=== PATIENT | male | born 1985 | race African-American/Black ===

== ENCOUNTER 2016-10-19 12:28 | Emergency (ER) | payer SELFPAY ==
[~2016-10-19] VITALS: Ht 195.6 cm; Wt 120.2 kg
[2016-10-19 13:00] VITALS: BP 129/81
--- NOTE | 2016-10-19 14:26 | RAD ---
Indication cough. PA and lateral views of the chest were obtained and are compared to a single view examination 09/04/2005. The heart and pulmonary vessels appear normal. There is a minimal patchy infiltrate in the left lower lobe most apparent on the PA view. The right lung appears clear. There is no pleural fluid or pneumothorax. IMPRESSION: Minimal patchy infiltrate, compatible with pneumonia, in the left lower lobe
--- NOTE | 2016-10-19 14:26 | PHYS DOC ---
Past Medical History Past Medical History: No Pertinent History Past Surgical History: Other Additional Past Surgical Histo: pin placed in left hip Alcohol Use: Occasionally Drug Use: None Adult General Chief Complaint Chief Complaint: SHORTNESS OF BREATH HPI HPI Patient is a 31 year old male who presents emergency room with a complaint of a progressive cough and left anterior chest wall pain that began approximately one week ago. Patient denies history of cardiopulmonary disease. Patient does smoke. He denies foreign travel, hospitalization or antibiotic use within the past 90 days. Patient reports left anterior chest wall pain that worsens with deep breath and cough. He denies palpitations, exertional dyspnea, orthopnea or PND. Review of Systems Review of Systems Constitutional: Denies fever or chills [] Eyes: Denies change in visual acuity, redness, or eye pain [] HENT: Denies nasal congestion or sore throat [] Respiratory: Denies cough or shortness of breath [] Cardiovascular: No additional information not addressed in HPI [] GI: Denies abdominal pain, nausea, vomiting, bloody stools or diarrhea [] : Denies dysuria or hematuria [] Musculoskeletal: Denies back pain or joint pain [] Integument: Denies rash or skin lesions [] Neurologic: Denies headache, focal weakness or sensory changes [] Endocrine: Denies polyuria or polydipsia [] Allergies Allergies Allergies Coded Allergies Type Severity Reaction Last Updated Verified No Known Drug Allergies 01/30/15 No Physical Exam Physical Exam Constitutional: Well developed, well nourished, no acute distress, non-toxic appearance. [] HENT: Normocephalic, atraumatic, bilateral external ears normal, oropharynx moist, no oral exudates, nose normal. Eyes: PERRLA, EOMI, conjunctiva normal, no discharge. [] Neck: Normal range of motion, no tenderness, supple, no stridor. [] Cardiovascular:Heart rate regular rhythm, no murmur [] Lungs & Thorax: There is no respiratory distress or respiratory fatigue. Patient does cough quite often with a staccato cough that is nonproductive. He has a scant amount of rales in the left lower lung base. Abdomen: Bowel sounds normal, soft, no tenderness, no masses, no pulsatile masses. [] Skin: Warm, dry, no erythema, no rash. [] Back: No tenderness, no CVA tenderness. [] Extremities: No tenderness, no cyanosis, no clubbing, ROM intact, no edema. [] Neurologic: Alert and oriented X 3, normal motor function, normal sensory function, no focal deficits noted. [] Psychologic: Affect normal, judgement normal, mood normal. [] Current Patient Data Vital Signs Vital Signs Date Time Temp Pulse Resp B/P Pulse Ox O2 Delivery O2 Flow Rate FiO2 10/19/16 13:00 97.9 109 17 98 Room Air 97.9 EKG EKG [] Radiology/Procedures Radiology/Procedures PA and lateral chest x-ray was performed with adequate technique and reviewed by Dr. Jessica and myself. There is a small streaky and treat in the left lower lobe. Course & Med Decision Making Course & Med Decision Making Pertinent Labs and Imaging studies reviewed. (See chart for details) [] Dragon Disclaimer Dragon Disclaimer This electronic medical record was generated, in whole or in part, using a voice recognition dictation system. Departure Departure Impression: Primary Impression: Pneumonia Disposition: HOME, SELF-CARE Condition: GOOD Referrals: NO PCP (PCP) Patient Instructions: Pneumonia, Adult, [id number] Additional Instructions: 1. Take the medication as prescribed. 2. Review the discharge instructions for reasons to return the emergency room. 3. Use the pamphlet provided for assistance in finding a primary care doctor to address your medical concerns. Please call Saturday to make that happen. Scripts Hydrocodone/Chlorphen Polis (Tussionex Pennkinetic Susp)480 Ml Darcie.[id number] Ml PO BID COUGH #100 ML Prov:BRISEIDA TOM 10/19/16 Albuterol Sulfate (Proair Hfa Inhaler)8.5 Gm Hfa.aer.ad2 Puff INH PRN Q6HRS PRN SHORTNESS OF BREATH #1 INHALER Ref 0 Prov:BRISEIDA TOM 10/19/16 Azithromycin (Azithromycin Tablet)250 Mg Tablet1 Pkg PO UD #6 TAB Prov:BRISEIDA TOM 10/19/16 Prednisone 50 Mg Iabikx18 Mg PO DAILY 5 Days Prov:BRISEIDA TOM 10/19/16 BRISEIDA TOM Oct 19, 2016 14:26
[2016-10-19] MEDS ORDERED: PRED50TA PO (14:34)
[2016-10-19] MEDS ORDERED: AZIT250T6 PO (14:34)
[2016-10-19] MEDS ORDERED: PROAIR HFA8.5 GM INH (14:34)
[2016-10-19] MEDS ORDERED: HYDR115S2 PO (14:34)
== END 2016-10-19 14:38 | disposition home or self-care (01) ==
LOC: ER 12:28
DX: J18.9 Pneumonia, unspecified organism (principal); F17.200 Nicotine dependence, unspecified, uncomplicated
CPT/HCPCS: 71020; 99284

== ENCOUNTER 2019-01-08 20:17 | Emergency (ER) | payer SELFPAY ==
[~2019-01-08] VITALS: Ht 195.6 cm; Wt 120.2 kg
[~2019-01-08 20:17] MED LIST: ALBU2.5V8 INH; AZIT250T6 PO; HYDR115S2 PO; PRED50TA PO
[2019-01-08 20:20] VITALS: BP 127/92
[2019-01-08] MEDS ORDERED: AMOXICILLIN/K CLAV 875/125MG TABLET. PO ONE (20:45)
[2019-01-08] MEDS ORDERED: NEOMY/BACITR/POLYMYXIN OINT PACKET. TP ONE (20:45)
[2019-01-08] MEDS ORDERED: LIDOCAINE 2%/EPI 1:100,000 20 ML VIAL. IJ ONE (20:45)
[2019-01-08] MEDS ORDERED: HYDROcodone/APAP 5/325MG 1 TAB TABLET PO ONE (22:15)
--- NOTE | 2019-01-08 22:39 | PHYS DOC ---
Past Medical History Past Medical History: No Pertinent History Past Surgical History: Other Additional Past Surgical Histo: pin placed in left hip Alcohol Use: Occasionally Drug Use: Marijuana Adult General Chief Complaint Chief Complaint: ANIMAL BITE HPI HPI 33-year-old male presents with report of laceration to left elbow after being attacked by a "black dog". Patient reports he thinks it looked like a [place]. Patient reports he and his friends were outside and heard a dog barking. Reports they began to run and dog ended up chasing him. Patient does report he fell at one point. Patient is unsure if the dog bit him or if he cut his arm on something else. Patient reports last tetanus less than 5 years ago. Review of Systems Review of Systems Constitutional: Denies fever or chills Eyes: Denies redness or eye pain HENT: Denies nasal congestion or sore throat Respiratory: Denies cough or shortness of breath Cardiovascular: Denies chest pain or palpitations GI: Denies abdominal pain, nausea, or vomiting : Denies dysuria or hematuria Musculoskeletal: Denies back pain or joint pain Integument: Reports abrasion to left shoulder, laceration to left elbow, abrasion to left ear Neurologic: Denies headache, focal weakness or sensory changes Complete systems were reviewed and found to be within normal limits, except as documented in this note. Current Medications Current Medications Current Medications Medications (Trade) Dose Ordered Sig/Stephani Start Time Stop Time Status Last Admin Dose Admin Acetaminophen/ Hydrocodone Bitart (Lortab 5/325) 1 tab 1X ONCE 01/08/19 22:15 01/08/19 22:16 DC 01/08/19 22:00 1 TAB Amoxicillin/ Clavulanate Potassium (Augmentin 875/ 125mg) 1 tab 1X ONCE 01/08/19 20:45 01/08/19 20:46 DC 01/08/19 20:57 1 TAB Lidocaine/ Epinephrine (LIDOCAINE 2%-EPI 1:100,000 multi-dose) 20 ml 1X ONCE 01/08/19 20:45 01/08/19 20:46 DC 01/08/19 20:57 20 ML Neomycin/ Polymyxin/ Bacitracin (Triple Antibiotic Ointment) 1 pkt 1X ONCE 01/08/19 20:45 01/08/19 20:46 DC 01/08/19 20:57 1 PKT Allergies Allergies Allergies Coded Allergies Type Severity Reaction Last Updated Verified No Known Drug Allergies 01/30/15 No Physical Exam Physical Exam Constitutional: Well developed, well nourished, anxious, non-toxic appearance HENT: Normocephalic, atraumatic, oropharynx moist Eyes: Conjunctiva normal, no discharge Neck: Normal range of motion, no tenderness, supple Cardiovascular: Heart rate normal, regular rhythm Lungs & Thorax: Bilateral breath sounds clear to auscultation, no wheezing Abdomen: Soft, no tenderness Skin: Warm, dry, no erythema, 2 linear lacerations to left elbow (7cm and 2cm), bleeding controlled; abrasion noted to left shoulder, small abrasion 0.5cm to left ear Extremities: No tenderness, ROM intact, no edema Neurologic: Alert and oriented X 3, normal motor function, normal sensory function, no focal deficits noted Psychologic: Affect anxious, judgement normal Current Patient Data Vital Signs EKG EKG [] Radiology/Procedures Radiology/Procedures PROCEDURE: ELBOW LEFT 3V EXAM: 3 views left elbow DATE: 01/08/2019 8:50 PM INDICATION: LACERATION, EVALUATE FOR FOREIGN BODY. COMPARISON: No Prior FINDINGS/ IMPRESSION: 1. No evidence of acute fracture or dislocation. 2. Soft tissue swelling and irregularity at the dorsal aspect of the right elbow. Given this overlies the triceps attachment, associated triceps injury is not excluded. Small focus of intra-articular gas is suspected at the radiocapitellar joint. 3. Small linear radiopaque density is seen at the lateral aspect of the lateral epicondyle, possibly retained foreign body, overlying structure or subtle calcification, seen only on the AP view. Electronically signed by: Nishant Hillman MD (01/09/2019 12:28 AM) [facility] Course & Med Decision Making Course & Med Decision Making Patient presents with history of present illness and physical exam consistent for.laceration to left elbow. Unclear if patient was actually bit by a dog or sustained laceration from something else. Empiric antibiotics initiated. Limb neurovascularly intact and with full range of motion. X-rays obtained without acute fracture. A small foreign body possibly noted. Lacerations copiously irrigated and wound explored without findings consistent for retained foreign body. Lacerations repaired with sutures. Dressing applied with triple antibiotic ointment. Patient stable for discharge with outpatient follow-up with PCP. Discussed findings and plan with patient, who acknowledges understanding and agreement. Dragon Disclaimer Dragon Disclaimer This electronic medical record was generated, in whole or in part, using a voice recognition dictation system. Laceration/Wound Repair Laceration/Wound Repair #1: Wound Location: upper extremity (left elbow) Wound's Depth, Shape: linear Wound Length (cm): 7 Wound Explored: no foreign body removed Irrigated w/ Saline (ccs): 200 Betadine Prep?: No Anesthesia: Lidocaine w/ Epi (2%) Volume Anesthetic (ccs): 6 Wound Debrided: minimal Wound Repaired With: sutures Suture Size/Type: 3:0, nylon Number of Sutures: 10 Layer Closure?: Yes Sterile Dressing Applied?: Yes Laceration/Wound Repair #2: Wound Location: upper extremity (left elbow) Wound's Depth, Shape: linear Wound Length (cm): 2 Wound Explored: no foreign body removed Irrigated w/ Saline (ccs): 200 Anesthesia: Lidocaine w/ Epi (2%) Volume Anesthetic (ccs): 2 Wound Debrided: minimal Wound Repaired With: sutures Suture Size/Type: 3:0, nylon Number of Sutures: 2 Sterile Dressing Applied?: Yes Progress Verbal consent obtained. Time out performed. Hand hygiene utilized. Wound cleaned with ChloraPrep. Anesthesia obtained via a 25-gauge hypodermic needle with total of (8) mL's of lidocaine 2% with epinephrine. Copious irrigation performed. Wound well approximated with (3-0 nylon x 10 to larger wound and 3-0 nylon x 2 to smaller wound). Patient tolerated procedure well and without difficulty. Empiric antibiotic ointment applied prior to sterile dressing. Departure Departure Impression: Primary Impression: Dog bite Additional Impression: Laceration Disposition: 01 HOME, SELF-CARE Condition: STABLE Referrals: NO PCP (PCP) Patient Instructions: Animal Bite, [id number], Laceration Care, Adult, [id number] Additional Instructions: Do not soak your wound. You may shower. Clean wound daily with soap and water. Change dressing 2 times daily. Use over the counter antibiotic ointment with each dressing change. Sutures need to be removed in 7-10 days. Present to your family doctor or local urgent care for removal. You may also present to the ED but it will be an additional visit/charge. After suture removal you may use Vitamin E ointment to soften the wound and prevent scarring. Use [id number] Tylenol or ibuprofen for pain or discomfort. Scripts Amoxicillin/Potassium Clav (AUGMENTIN 875-125 TABLET) 1 Each Tablet 1 TAB PO BID, #14 TAB Prov: HARRY KERN DO 01/08/19 Problem Qualifiers Primary Impression: Dog bite Encounter type: initial encounter Qualified Codes: W54.0XXA - Bitten by dog, initial encounter HARRY KERN DO Jan 08, 2019 22:39
[2019-01-08] MEDS ORDERED: AMOX1TAB61 PO (22:48)
--- NOTE | 2019-01-09 00:31 | RAD ---
EXAM: 3 views left elbow DATE: 01/08/2019 8:50 PM INDICATION: LACERATION, EVALUATE FOR FOREIGN BODY. COMPARISON: No Prior FINDINGS/ IMPRESSION: 1. No evidence of acute fracture or dislocation. 2. Soft tissue swelling and irregularity at the dorsal aspect of the right elbow. Given this overlies the triceps attachment, associated triceps injury is not excluded. Small focus of intra-articular gas is suspected at the radiocapitellar joint. 3. Small linear radiopaque density is seen at the lateral aspect of the lateral epicondyle, possibly retained foreign body, overlying structure or subtle calcification, seen only on the AP view. Electronically signed by: Nishant Hillman MD (01/09/2019 12:28 AM) [facility]
== END 2019-01-08 23:05 | disposition home or self-care (01) ==
LOC: ER 20:17
DX: S41.112A Laceration without foreign body of left upper arm, initial encounter (principal); W54.0XXA Bitten by dog, initial encounter; Y93.02 Activity, running; Y92.89 Other specified places as the place of occurrence of the external cause; Y99.8 Other external cause status
CPT/HCPCS: 12004; 73080; 99284; J3490; 12002; 12042